=== PATIENT | female | born 1975 | race Caucasian/White ===

== ENCOUNTER 2023-03-01 10:08 | Outpatient (OUT) | payer OTHER, SELFPAY ==
--- NOTE | 2023-03-01 10:38 | XR_ITS ---
The [address] [address] Patient Name: SEAN ROSEN MRN: [id number] date: 1975 Sex: F Assigned Patient Location: [facility] Current Patient Location: [facility] Accession/Order Number: [id number] Exam Date: 03/01/2023 10:30 Report Date: 03/02/2023 11:32 At the request of: TOVA LYNCH Procedure: XR hip LT min 2V EXAM: XR hip LT min 2V HISTORY: Pain In Left Hip M25.552 COMPARISON: None. TECHNIQUE: Two-view left hip study was performed. FINDINGS: No definite acute fracture or dislocation. Minimal degenerative changes about the left hip joint with slight superolateral spurring of the acetabulum. Minimal spurring of the greater trochanter. Soft tissues are grossly within normal limits. Mild osteitis pubis. XR/XR hip LT min 2V IMPRESSION: Left hip study demonstrates minimal degenerative changes about the left hip joint. Mild osteitis pubis. Follow up as needed. Electronically authenticated by: EDIN TANNER Date: 03/02/2023 11:32
== END 2023-03-01 10:09 | disposition home or self-care (01) ==
LOC: RAD 10:13
PROVIDERS: PCP Family Medicine; Visit Provider Family Medicine
DX: M25.552 Pain in left hip (principal); M16.12 Unilateral primary osteoarthritis, left hip
CPT/HCPCS: 73502

== ENCOUNTER → 2023-03-15 12:11 | Day surgery (SDC) | payer OTHER, SELFPAY ==
--- NOTE | 2023-03-15 | FL_ITS ---
The [address] [address] Patient Name: SEAN ROSEN MRN: [id number] date: 1975 Sex: F Assigned Patient Location: [place] Current Patient Location: [place] Accession/Order Number: [id number] Exam Date: 03/15/2023 13:55 Report Date: 03/15/2023 15:37 At the request of: TOVA LYNCH Procedure: FL hip inj LT EXAMINATION: FL hip inj LT, FL guided needle placement HISTORY: hip pain COMPARISON: No relevant comparison available. FLUOROSCOPY TIME: Fluoro time measures 1 min and1 image was obtained. TECHNIQUE: A joint injection was performed in the usual sterile manner after obtaining informed consent. Standard level fluoroscopic mode of operation utilized. FINDINGS: JOINT: left hip. NEEDLE: 22 gauge, 3.5 spinal needle. MEDICATION: 2cc buffered 1% lidocaine for subcutaneous anesthesia 2cc Omnipaque-300 iodinated contrast to visualize the joint space Mixture of Kenalog 40 mg, 0.5% Bupivacaine 2 mL and Omnipaque 300 10mL was injected into the joint space. TECHNIQUE: Anterior approach with prior localization of the femoral artery. A single stick was successful in gaining access to the joint space. CLINICAL: 8 out of 10 before the injection. 6 out of 10 after the injection COMPLICATIONS: None. OTHER: Negative. FL/FL hip inj LT IMPRESSION: Technically successful left hip therapeutic arthrogram Electronically authenticated by: DORIAN HORTON Date: 03/15/2023 15:37
--- NOTE | 2023-03-15 | FL_ITS ---
[address] [address] Patient Name: SEAN ROSEN MRN: [id number] date: 1975 Sex: F Assigned Patient Location: CT Current Patient Location: [place] Accession/Order Number: [id number] Exam Date: 03/15/2023 13:55 Report Date: 03/15/2023 15:37 At the request of: TOVA LYNCH Procedure: FL guided needle placement EXAMINATION: FL hip inj LT, FL guided needle placement HISTORY: hip pain COMPARISON: No relevant comparison available. FLUOROSCOPY TIME: Fluoro time measures 1 min and1 image was obtained. TECHNIQUE: A joint injection was performed in the usual sterile manner after obtaining informed consent. Standard level fluoroscopic mode of operation utilized. FINDINGS: JOINT: left hip. NEEDLE: 22 gauge, 3.5 spinal needle. MEDICATION: 2cc buffered 1% lidocaine for subcutaneous anesthesia 2cc Omnipaque-300 iodinated contrast to visualize the joint space Mixture of Kenalog 40 mg, 0.5% Bupivacaine 2 mL and Omnipaque 300 10mL was injected into the joint space. TECHNIQUE: Anterior approach with prior localization of the femoral artery. A single stick was successful in gaining access to the joint space. CLINICAL: 8 out of 10 before the injection. 6 out of 10 after the injection COMPLICATIONS: None. OTHER: Negative. FL/FL guided needle placement IMPRESSION: Technically successful left hip therapeutic arthrogram Electronically authenticated by: DORIAN HORTON Date: 03/15/2023 15:37
[2023-03-15 13:04] VITALS: BP 217/137
[2023-03-15] MEDS: CLONIDINE HCL 0.1 MG TABLET PO (13:04)
[2023-03-15 13:07] VITALS: BP 217/137; PULSE 87; RESP 16; O2SAT 97
--- NOTE | 2023-03-15 13:09 | PC.NURSE ---
1235: Pt. to radiology for scheduled hip injection. Changed into gown. Seated on exam table. BP 217/137. Re-checked several times on other arm and cuffs changed. Pt. states she always runs high. States taking Metoprolol 100mg po this am. Denies c/o headache, blurred vision, n/v or other c/o. States left hip pain at 7 1/10. 1248: Dr. Crawford arrives for procedure. Notified of BP. Instructs this RN to contact Dr. Pierson, pt. family physician to advise. 1255: Dr. Pierson phoned. Updated on pt. condition. New order received. 1304: Medicated with Clonidine 0.1mg po as ordered per Dr. Pierson. Pt. escorted to relax on cart and watch TV for awhile and will re-check BP in 45min. Pt. relays understanding and comfort. Call light in reach.
[2023-03-15 13:36] VITALS: BP 181/90
--- NOTE | 2023-03-15 13:42 | PC.NURSE ---
1338: BP 181/90. Dr. Crawford notified, agrees to proceed with injection. Pt. to x-ray room. Seated on table.
[2023-03-15 14:08] VITALS: BP 195/100
--- NOTE | 2023-03-15 14:18 | PC.NURSE ---
1354: Dr. Crawford to room. Consent form verified and questions addressed. Site verified by pt. marking correct side, left hip. Time out done. Pt. to supine position. 1355: Using x-ray, Dr. Crawford confirms injection site. Using sterile technique, Dr. Crawford initiates arthrogram to left hip. Pt. tolerating without c/o. 1403: Procedure complete. Trace bleeding to injection site. This RN cleans site with sterile 4x4 and covered with large bandaid. Pt. given d/c instructions. Verbalizes understanding. 1415: Pt. without change. No bleeding to bandaid. D/c'd amb. to home.
== END ==
LOC: FL 12:13
PROVIDERS: PCP Family Medicine; Visit Provider Family Medicine
DX: M25.552 Pain in left hip (principal)
CPT/HCPCS: 20610; 77002; Q9967

== ENCOUNTER 2023-06-10 14:16 | Emergency (ER) | payer SELFPAY ==
[2023-06-10 14:20] VITALS: BP 196/104; PULSE 117; RESP 24; TEMP 39.6; O2SAT 98; BMI 27.4
--- NOTE | 2023-06-10 14:46 | ED_ITS ---
HPI - Nausea/Vomiting/Diarrhea General Chief complaint: Nausea/Vomiting/Diarrhea Stated complaint: NAUSEA, VOMITING, SHAKING Time Seen by Provider: 06/10/23 14:28 Source: patient Mode of arrival: Wheelchair Limitations: no limitations History of Present Illness HPI Narrative: 48 year old female presents to the ED for N/V/D, cough, fever, chills, body aches, sore throat. Onset was 4 days ago. The emesis started today. Denies SOB, abd pain, urinary sx. Rates her pain 8/10. She presented febrile. She has taken Excedrin today. Related Data Home Medications Medication Instructions Recorded Confirmed iuleruq-qovqmlvnztyyp-oqkcfenj 250 2 tab PO Q6H PRN pain 03/09/23 03/09/23 mg-250 mg-65 mg tablet diclofenac sodium 75 mg 75 mg PO BID PRN pain 03/09/23 06/10/23 tablet,delayed release levothyroxine 150 mcg capsule 150 mcg PO DAILY 03/09/23 06/10/23 pantoprazole 40 mg tablet,delayed 40 mg PO DAILY 03/09/23 06/10/23 release Previous Rx's Medication Instructions Recorded amoxicillin 500 mg capsule 500 mg PO BID 10 days #20 caps 06/10/23 ibuprofen 800 mg tablet 800 mg PO TID PRN fever or pain 06/10/23 #15 tabs ondansetron 4 mg disintegrating 4 mg PO Q8H PRN nausea and 06/10/23 tablet vomiting 4 days #12 tabs Allergies Allergy/AdvReac Type Severity Reaction Status Date / Time No Known Drug Allergies Allergy Verified 03/09/23 08:51 Review of Systems ROS Constitutional Reports: fever, chills and fatigue Ears, nose, mouth, and throat Reports: throat pain; Denies: neck pain Cardiovascular Denies: chest pain Respiratory Reports: cough; Denies: shortness of breath Gastrointestinal Reports: nausea, vomiting and diarrhea; Denies: abdominal pain Musculoskeletal Reports: muscle cramps Integumentary/Breast Denies: rash or itching Neurological Reports: headache; Denies: numbness in extremities, weakness in extremities or dizziness [facility] Medical History (Updated 06/10/23 @ 16:41 by Meagan Beebe) Depression ?F32.A - Depression, unspecified (ICD-10) 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) Migraines ?G43.909 - Migraine, unspecified, not intractable, without status migrainosus (ICD-10) HTN (hypertension) ?I10 - Essential (primary) hypertension (ICD-10) Arthritis ?M19.90 - Unspecified osteoarthritis, unspecified site (ICD-10) Left sciatic nerve pain ?M54.32 - Sciatica, left side (ICD-10) Surgical History (Updated 03/09/23 @ 08:52 by Mae Arnold) H/O unilateral oophorectomy ?Z90.721 - Acquired absence of ovaries, unilateral (ICD-10) Social History Smoking status: Heavy tobacco smoker Exam Constitutional Vital Signs, click to edit/add: Last Vital Signs Temp 101.0 F H 06/10/23 16:52 Pulse 117 H 06/10/23 14:20 Resp 24 06/10/23 14:20 BP 196/104 H 06/10/23 14:20 Pulse Ox 98 06/10/23 14:20 O2 Del Method Room Air 06/10/23 14:20 Common normals: no apparent distress and oriented x3 General appearance: cooperative HENIN Common normals: normocephalic Face and sinus: normal facial exam Nose: external nose normal External ear: external ears normal Mouth: moist mucous membranes abnormal (Dry); no muffled voice Throat: uvula midline and posterior oropharynx abnormal erythema; no edema and no exudates Eye Common normals: conjunctivae normal and no scleral icterus Neck & C-Spine Common normals: supple Chest Chest: symmetrical chest wall rise Respiratory Common normals: normal respiratory effort and clear to auscultation bilaterally Effort & inspection: able to speak in complete sentences Cardio Common normals: regular rhythm Rate: tachycardic GI Common normals: Normal to inspection, nondistended, normoactive bowel sounds present, soft to palpation and non-tender Neuro Common normals: oriented x3 Sensorium/orientation: awake and alert Speech: speech normal Gait (neuro): normal gait Course Vital Signs Vital signs: Vital Signs Temperature 103.3 F H 06/10/23 14:20 Pulse Rate 117 H 06/10/23 14:20 Respiratory Rate 24 06/10/23 14:20 Blood Pressure 196/104 H 06/10/23 14:20 Pulse Oximetry 98 06/10/23 14:20 Oxygen Delivery Method Room Air 06/10/23 14:20 Temperature 101.0 F H 06/10/23 16:52 Pulse Rate 117 H 06/10/23 14:20 Respiratory Rate 24 06/10/23 14:20 Blood Pressure 196/104 H 06/10/23 14:20 Pulse Oximetry 98 06/10/23 14:20 Oxygen Delivery Method Room Air 06/10/23 14:20 MDM - Nausea/Vomiting/Diarrhea MDM Narrative Medical decision making narrative: Strep screen was positive. Covid-19 and influenza were negative. She was given IV fluids and medication for her fever, symptoms with improvement. She was tolerating oral fluids. Follow up with pcp for a recheck, further evaluation and treatment. Prescriptions were provided for amoxicillin, Zofran, and Motrin. Differential Diagnosis Differential diagnosis: Likely dehydration and other (N/V/D, viral illness, strep pharyngitis, Covid-19, influenza.) Medical Records Attestation: I reviewed the patient's medical records. Lab Data Attestation: I reviewed the patient's lab results. Labs: Lab Results 06/10/23 06/10/23 06/10/23 Range/Units 14:30 14:36 14:39 WBC 4.5 (4.0-11.0) 10^3/uL RBC 4.24 (4.20-5.40) 10^6/uL Hgb 12.6 (12.0-16.0) g/dL Hct 38.4 (36.0-48.0) % MCV 90.6 (81.0-99.0) fL MCH 29.7 (26.7-34.0) pg MCHC 32.8 (29.9-35.2) g/dL RDW 12.7 (11.0-15.0) % Plt Count 292 (150-450) 10^3/uL MPV 9.6 (9.5-13.5) fL Seg Neuts % (Manual) 80.0 Lymphocytes % (Manual) 17.0 L (20.5-60.0) % Monocytes % (Manual) 1.0 L (1.7-12.0) % Eosinophils % (Manual) 2.0 (0.9-7.0) % Basophils % (Manual) 0.0 L (0.2-2.0) % Neutrophils # (Manual) 3.60 (1.4-6.5) 10^3/uL Lymphocytes # (Manual) 0.76 L (1.20-3.80) 10^3/uL Monocytes # (Manual) 0.04 L (0.30-0.80) 10^3/uL Eosinophils # (Manual) 0.09 (0.00-0.70) 10^3/uL Basophils # (Manual) 0.00 (0.00-0.10) 10^3/uL Sodium 140 (136-145) mmol/L Potassium 2.9 L* (3.5-5.1) mmol/L Chloride 101 (98-107) mmol/L Carbon Dioxide 26.6 (21.0-32.0) mmol/L Anion Gap 15.3 BUN 18.0 (7.0-18.0) mg/dL Creatinine 1.39 H (0.55-1.02) mg/dL Est GFR ( Amer) 49 L (>=60) Est GFR (Non-Af Amer) 40 L (>=60) BUN/Creatinine Ratio 12.9 Glucose 103 (74-106) mg/dL Calcium 8.9 (8.5-10.1) mg/dL Total Bilirubin 0.7 (0.2-1.0) mg/dL AST 13 L (15-37) U/L ALT 15 (14-59) U/L Alkaline Phosphatase 137 H (46-116) U/L Total Protein 7.2 (6.4-8.2) g/dL Albumin 3.1 L (3.4-5.0) g/dL Globulin 4.1 g/dL Albumin/Globulin Ratio 0.8 Influenza Type A Ag Negative Influenza Type B Ag Negative SARS-CoV-2 Ag (CV2AG) Negative (NEGATIVE) Streptococcus Screen Positive A Discharge Plan Discharge Stand Alone Forms: Portal Instructions Chief Complaint: Nausea/Vomiting/Diarrhea Clinical Impression: Fever, Strep pharyngitis, Nausea & vomiting Patient Disposition: Home, Self-Care Time of Disposition Decision: 16:42 Condition: Good Mode of Transportation: Private Vehicle Prescriptions / Home Meds: New amoxicillin 500 mg capsule 500 mg PO BID 10 Days Qty: 20 0RF ondansetron 4 mg tablet,disintegrating 4 mg PO Q8H PRN (Reason: nausea and vomiting) 4 Days Qty: 12 0RF ibuprofen 800 mg tablet 800 mg PO TID PRN (Reason: fever or pain) Qty: 15 0RF No Action diclofenac sodium 75 mg tablet,delayed release (DR/EC) 75 mg PO BID PRN (Reason: pain) levothyroxine 150 mcg capsule 150 mcg PO DAILY pantoprazole 40 mg tablet,delayed release (DR/EC) 40 mg PO DAILY gdqczyq-zznstlvkgjjmy-emynypmc 250-250-65 mg tablet 2 tab PO Q6H PRN (Reason: pain) Instructions: Strep Throat (ED), Fever in Adults (ED), Acute Nausea and Vomiting (ED) Referrals: Bhanu Pierson MD [Primary Care Provider] - 1 week Discharge Date/Time: 06/10/23 17:33
[2023-06-10 14:56] LABS: Influenza Virus A Antigen Negative; Influenza Virus B Antigen Negative; Internal Control Within Normal Limits; SARS-CoV-2 Ag NEGATIVE (NEGATIVE)
[2023-06-10 14:56] LABS: Internal Control Within Normal Limits; Strep A Antigen Screen Positive
[2023-06-10 15:00] LABS: Hematocrit 38.4 % (36.0-48.0); Hemoglobin 12.6 g/dL (12.0-16.0); Mean Corpuscular HGB Conc 32.8 g/dL (29.9-35.2); Mean Corpuscular Hemoglobin 29.7 pg (26.7-34.0); Mean Corpuscular Volume 90.6 fL (81.0-99.0); Mean Platelet Volume 9.6 fL (9.5-13.5); Platelet Count 292 10^3/uL (150-450); Red Blood Count 4.24 10^6/uL (4.20-5.40); Red Cell Distribution Width 12.7 % (11.0-15.0); White Blood Count 4.5 10^3/uL (4.0-11.0)
[2023-06-10 15:10] LABS: Alanine Aminotransferase 15 U/L (14-59); Albumin Globulin Ratio 0.8; Albumin Level 3.1 g/dL (3.4-5.0); Alkaline Phosphatase 137 U/L (46-116); Anion Gap 15.3; Aspartate Amino Transferase 13 U/L (15-37); BUN Creatinine Ratio 12.9; Bilirubin Total 0.7 mg/dL (0.2-1.0); Calcium 8.9 mg/dL (8.5-10.1); Carbon Dioxide 26.6 mmol/L (21.0-32.0); Chloride 101 mmol/L (98-107); Estimated GFR (African America 49 (>=60); Estimated GFR (Non-African Ame 40 (>=60); Globulin 4.1 g/dL; Glucose 103 mg/dL (74-106); Sodium 140 mmol/L (136-145); Total Protein 7.2 g/dL (6.4-8.2)
[2023-06-10 15:14] LABS: Potassium 2.9 mmol/L (3.5-5.1)
[2023-06-10] MEDS: ONDANSETRON PF 4 MG/2 ML VIAL IV (15:26)
[2023-06-10] MEDS: ACETAMINOPHEN 500 MG TABLET 1000 MG PO (15:26)
[2023-06-10] MEDS: 0.9 % SODIUM CHLORIDE 1,000 ML 1000 ML IV ×2 (15:26→16:21)
[2023-06-10 15:30] LABS: Eosinophils Absolute Manual 0.09 10^3/uL (0.00-0.70); Lymphocytes Absolute Manual 0.76 10^3/uL (1.20-3.80); Monocytes Absolute Manual 0.04 10^3/uL (0.30-0.80)
[2023-06-10] MEDS: IBUPROFEN 400 MG TABLET 800 MG PO (15:45)
[2023-06-10] MEDS: POTASSIUM CHLORIDE 10 MEQ ER TABLET 40 MEQ PO (16:07)
[2023-06-10 16:10] VITALS: TEMP 39.5
[2023-06-10 16:52] VITALS: TEMP 38.3
== END 2023-06-10 17:33 | disposition home or self-care (01) ==
PROVIDERS: Nurse Practitioner Family; Emergency Provider Emergency Medicine; PCP Family Medicine
DX: R11.2 Nausea with vomiting, unspecified (principal); J02.0 Streptococcal pharyngitis; R50.9 Fever, unspecified; Z20.822 Contact with and (suspected) exposure to COVID-19; Z79.82 Long term (current) use of aspirin; Z79.899 Other long term (current) drug therapy; Z79.890 Hormone replacement therapy; F32.A Depression, unspecified; E06.3 Autoimmune thyroiditis; I10 Essential (primary) hypertension; M19.90 Unspecified osteoarthritis, unspecified site; F17.210 Nicotine dependence, cigarettes, uncomplicated; Z90.721 Acquired absence of ovaries, unilateral
CPT/HCPCS: 36415; 80053; 85007; 85027; 87804; 87811; 87880; 96361; 96374; 99285

== ENCOUNTER 2024-07-21 08:49 | Outpatient (OUT) | payer OTHER, SELFPAY ==
--- NOTE | 2024-07-21 09:27 | MM_ITS ---
Patient Name: SEAN ROSEN MR#: [id number] : 1975 Exam Date: 07/21/2024 Ordering Doctor: DR Bhanu Pierson . RADIOLOGY REPORT PROCEDURE: MM TOMOSYNTHESIS SCREENING BI COMPARISON: MG MAMM ISRA SCRN W CAD DIG, 08/16/2014. INDICATIONS: Screening Calculator Name NCI Breast Cancer Risk Assessment Tool 5 Year Breast Cancer Risk 0.70% Lifetime Breast Cancer Risk 5.90% Personal Breast Cancer No Personal Ovarian Cancer No Treatments None Family Cancers Grandfather-paternal with colon cancer at age ~65. LOCATION: [facility] [place] BREAST COMPOSITION: The breasts are heterogeneously dense,which may obscure small masses. FINDINGS: DIAGNOSTIC CATEGORY 1--NEGATIVE. RIGHT BREAST: No significant suspicious finding. LEFT BREAST: No significant suspicious finding. RECOMMENDATIONS: ROUTINE MAMMOGRAM AND CLINICAL EVALUATION IN 12 MONTHS. PLEASE NOTE: A NORMAL MAMMOGRAM DOES NOT EXCLUDE THE POSSIBILITY OF BREAST CANCER. A CLINICALLY SUSPICIOUS PALPABLE LUMP SHOULD BE BIOPSIED. Dictated by: Brian Rocha DO on 07/21/2024 at 14:31 Approved by: Brian Rocha DO on 07/21/2024 at 14:57
[2024-07-21 09:37] LABS: Basophils Percent Auto 0.5 % (0.2-2.0); Eosinophils Absolute Auto 0.4 10^3/uL (0.0-0.7); Eosinophils Percent Auto 5.3 % (0.9-7.0); Hematocrit 39.9 % (36.0-48.0); Hemoglobin 13.2 g/dL (12.0-16.0); Immature Granulocytes Abs Auto 0.01 10^3/uL (0.00-0.03); Immature Granulocytes Pct Auto 0.1 % (0.0-0.5); Mean Corpuscular HGB Conc 33.1 g/dL (29.9-35.2); Mean Corpuscular Hemoglobin 29.5 pg (26.7-34.0); Mean Corpuscular Volume 89.1 fL (81.0-99.0); Mean Platelet Volume 9.8 fL (9.5-13.5); Monocytes Absolute Auto 0.7 10^3/uL (0.3-0.8); Monocytes Percent Auto 8.5 % (1.7-12.0); Neutrophils Absolute Auto 4.6 10^3/uL (1.4-6.5); Neutrophils Percent Auto 59.6 % (43.0-75.0); Platelet Count 284 10^3/uL (150-450); Red Blood Count 4.48 10^6/uL (4.20-5.40); Red Cell Distribution Width 12.3 % (11.0-15.0); White Blood Count 7.8 10^3/uL (4.0-11.0)
[2024-07-21 10:20] LABS: Estimated Average Glucose 120 mg/dL; Glycohemoglobin A1C 5.8 % (4.5-6.2)
[2024-07-21 10:36] LABS: Alanine Aminotransferase 15 U/L (14-59); Albumin Globulin Ratio 1.1; Albumin Level 3.7 g/dL (3.4-5.0); Alkaline Phosphatase 79 U/L (46-116); Aspartate Amino Transferase 15 U/L (15-37); BUN Creatinine Ratio 19.8; Bilirubin Total 0.4 mg/dL (0.2-1.0); Calcium 9.4 mg/dL (8.5-10.1); Carbon Dioxide 29.6 mmol/L (21.0-32.0); Chloride 106 mmol/L (98-107); Chol HDL Ratio 2.9; Cholesterol 179 mg/dL (<=200); Estimated GFR (African America >60 (>=60 mL/min/1.73m^2); Estimated GFR (Non-African Ame >60 (>=60 mL/min/1.73m^2); Free T3 3.16 pg/mL (2.18-3.98); Globulin 3.4 g/dL; Glucose 96 mg/dL (74-106); HDL Cholesterol 61 mg/dL (40-60); Potassium 3.6 mmol/L (3.5-5.1); Sodium 144 mmol/L (136-145); Thyroid Stimulating Hormone 0.011 uIU/mL (0.358-3.740); Total Protein 7.1 g/dL (6.4-8.2); Triglycerides 71 mg/dL (<=150); VLDL CHOLESTEROL 14.2 mg/dL
[2024-07-23 12:07] LABS: Insulin 6.6 uIU/mL (2.6-24.9)
== END 2024-07-21 08:50 | disposition home or self-care (01) ==
PROVIDERS: PCP Family Medicine; Visit Provider Family Medicine
DX: Z00.00 Encounter for general adult medical examination without abnormal findings (principal); Z12.12 Encounter for screening for malignant neoplasm of rectum; Z80.0 Family history of malignant neoplasm of digestive organs
CPT/HCPCS: 36415; 77063; 77067; 80053; 80061; 83036; 83525; 84436; 84443; 84481; 85025

== ENCOUNTER 2024-07-22 09:33 | Outpatient (REF) | payer OTHER, SELFPAY ==
[2024-07-22 12:00] LABS: Internal Control Within Normal Limits; Occult Blood Negative
== END 2024-07-22 09:34 | disposition home or self-care (01) ==
LOC: LAB 09:33
PROVIDERS: PCP Family Medicine; Visit Provider Family Medicine
DX: Z00.00 Encounter for general adult medical examination without abnormal findings (principal); Z12.12 Encounter for screening for malignant neoplasm of rectum
CPT/HCPCS: G0328